=== PATIENT | female | born 1955 | race Caucasian/White ===

== ENCOUNTER → 2020-08-15 | Outpatient (CLI) | payer OTHER ==
[2020-08-15 12:24] LABS: RED BLOOD COUNT 4.92 M/UL (4.00-5.10); WHITE BLOOD COUNT 7.8 K/UL (4.5-11.0)
[2020-08-15 12:47] LABS: BUN/CREATININE RATIO 10 (0-10)
[2020-08-16 09:13] LABS: RHEUMATOID ARTHRITIS FACTOR <10.0 IU/mL (0.0-13.9)
[2020-08-18 06:10] LABS: CCP ANTIBODIES IGG/IGA 15 units (0-19)
== END ==
LOC: LAB 11:44
PROVIDERS: Internal Medicine
DX: D89.89 Other specified disorders involving the immune mechanism, not elsewhere classified (principal); M25.50 Pain in unspecified joint; M79.10 Myalgia, unspecified site; R76.8 Other specified abnormal immunological findings in serum; Z87.898 Personal history of other specified conditions
CPT/HCPCS: 36415; 80053; 82728; 83520; 85025; 85652; 86140; 86200; 86431

== ENCOUNTER → 2020-11-26 | Outpatient (CLI) | payer OTHER ==
[2020-11-26 16:35] LABS: HEMOGLOBIN 15.5 gm/dl (12.3-15.3); RED BLOOD COUNT 5.04 M/UL (4.00-5.10); WHITE BLOOD COUNT 9.6 K/UL (4.5-11.0)
[2020-11-26 17:02] LABS: BUN/CREATININE RATIO 13 (0-10)
== END ==
LOC: LAB 15:43
DX: E11.9 Type 2 diabetes mellitus without complications (principal); E78.5 Hyperlipidemia, unspecified; R11.0 Nausea; R51.9 Headache, unspecified
CPT/HCPCS: 80053; 80061; 83036; 85027

== ENCOUNTER → 2020-12-11 | Outpatient (CLI) | payer OTHER ==
[2020-12-12 08:14] LABS: THYROXINE (T4) 7.8 ug/dL (4.5-12.0); TRIIODOTHYRONINE (T3) 125 ng/dL (71-180)
[2020-12-12 11:14] LABS: ALPHA-1-ANTITRYPSIN, SERUM 165 mg/dL (101-187)
[2020-12-12 13:15] LABS: HBSAG SCREEN Negative (Negative); HEP A AB, IGM Negative (Negative); HEP B CORE AB, IGM Negative (Negative); HEP C VIRUS AB <0.1 (0.0-0.9)
[2020-12-12 14:15] LABS: MITOCHONDRIAL (M2) ANTIBODY <20.0 Units (0.0-20.0)
== END ==
LOC: US 09:45
PROVIDERS: Internal Medicine Gastroenterology
DX: R10.11 Right upper quadrant pain (principal); R74.8 Abnormal levels of other serum enzymes; K76.0 Fatty (change of) liver, not elsewhere classified
CPT/HCPCS: 36415; 76705; 80074; 80076; 82103; 82728; 83540; 83550; 84436; 84443; 84480; 86038

== ENCOUNTER → 2021-01-19 | Outpatient (CLI) | payer MEDICARE | LOC: RAD 14:37 | DX: M54.5 Low back pain (principal); M25.512 Pain in left shoulder; M47.816 Spondylosis without myelopathy or radiculopathy, lumbar region | CPT/HCPCS: 72110; 73030 ==